=== PATIENT | male | born 1960 | race Caucasian/White ===

== ENCOUNTER 2021-03-24 16:10 | Emergency (ER) | payer OTHER ==
[~2021-03-24] VITALS: Ht 182.9 cm; Wt 68.5 kg
[2021-03-24] MEDS ORDERED: IOHEXOL-350 100 ML VIAL IV ONE (16:45)
[2021-03-24] MEDS ORDERED: IV NS 0.9% 250 ML IV ONE (16:46)
[2021-03-24 16:49] LABS: BASOPHILS % (AUTO) 0.4 % (0.0-2.0); EOSINOPHILS % (AUTO) 0.3 % (0.0-6.0); HEMATOCRIT 36 % (39-51); HEMOGLOBIN 11.9 g/dL (13.5-17.5); LYMPHOCYTES # (AUTO) 1.3 /CMM (0.8-4.8); LYMPHOCYTES % (AUTO) 11.5 % (20.0-44.0); MEAN CORPUSCULAR HGB CONC 33 g/dl (31.0-36.0); MEAN CORPUSCULAR VOLUME 90 fL (80-96); MONOCYTES # (AUTO) 1.1 /CMM (0.1-1.30); MONOCYTES % (AUTO) 9.2 % (2.0-12.0); NEUTROPHILS # (AUTO) 9.2 /CMM (1.8-8.9); NEUTROPHILS % (AUTO) 78.6 % (43.0-81.0); PLATELET COUNT (AUTO) 217 /CMM (150-450); RED BLOOD CELL COUNT(AUTO) 4.03 MIL/uL (4.5-6.0); WHITE BLOOD COUNT (AUTO) 11.6 K/uL (4.3-11.0)
--- NOTE | 2021-03-24 16:50 | NUR ---
JONATHON FROM HOME TO ER BED 5. AAOX4. IN MILD DISTRESS, SOB SATING @ 85% ON RA. BROUGHT IN FOR SOB X 1 WEEKS WORST TODAY. PT ALSO REPORTS THAT HIS LEGS HAVE SWOLLEN FOR THE PAST WEEK. PT IS NOTED JAUNDICE AND REPORT LIVER CA X 6 YRS, LAST CHEMO 4 MOTNHS AGO. PT ALSO PRESENT WITH A PICC LINE THE PATIENT REPORTS LAST BEING USED 4MONTHS AGO FOR CHEMO AND LAST PICC LINE CARE X 2 WEEKS AGO. WAS AT THE BEDSIDE FOR EVAL. ORDES RECEIVED, NOTED AND CARRIED OUT. IV LINE ESTABLISHED ON R AC 18G, BLOOD DRAWN AND GIVEN TO LAB. PT ON O2 VIA NC @ 3LPM SATTING @ 100% WITH DISTRESS ALLEVIATION. WILL CONTINUE TO MONITOR
--- NOTE | 2021-03-24 16:56 | NUR ---
US AT BEDSIDE
[2021-03-24 16:57] LABS: CALCIUM, SERUM 8.6 mg/dL (8.5-10.1); CREATININE 1.1 mg/dL (0.6-1.3); POTASSIUM 3.6 mmol/L (3.5-5.1)
[2021-03-24 17:09] LABS: ALBUMIN 1.7 g/dL (3.4-5.0); BILIRUBIN,DIRECT 11.1 mg/dL (0.0-0.2); BILIRUBIN,TOTAL 12.7 mg/dL (0.2-1.0); TOTAL PROTEIN, SERUM 6.4 g/dL (6.4-8.2)
[2021-03-24] MEDS ORDERED: FUROSEMIDE 40 MG/4 ML VIAL IV ONE (17:30)
[2021-03-24] MEDS ORDERED: FUROSEMIDE 40 MG/4 ML VIAL ONE (17:38)
--- NOTE | 2021-03-24 17:55 | NUR ---
CALLED [facility].
--- NOTE | 2021-03-24 18:10 | NUR ---
covid swab done and sent to lab
--- NOTE | 2021-03-24 18:18 | NUR ---
AUSTIN ZAMORA [phone] CAREGIVER?
--- NOTE | 2021-03-24 18:51 | NUR ---
GOING TO [facility] ED. # FOR REPORT [phone] ADMITTING MD: DR [facility] ETA 1 HOUR.
--- NOTE | 2021-03-24 18:59 | NUR ---
LAB CALLED PT COVID RESULT NEGATIVE (-).
[2021-03-24] MEDS ORDERED: ALPRAZOLAM 0.5 MG TABLET PO ONE (19:00)
--- NOTE | 2021-03-24 19:04 | NUR ---
ETA 2100 [facility] ambulance
[2021-03-24] MEDS ORDERED: ALPRAZOLAM 0.5 MG TABLET ONE (19:07)
--- NOTE | 2021-03-24 19:16 | NUR ---
BRANDIE, PT'S IS AWARE THAT THE PT IS GOING TO BE TRANSFERRED TO [facility]
[2021-03-24 20:29] VITALS: BP 126/82
--- NOTE | 2021-03-24 20:38 | NUR ---
Kobi lucia in ED - 03/24/21 at 2039 by AMIRAH Report given to isrrael Micalcine furnace loader nurse at [facility].
--- NOTE | 2021-03-24 20:39 | NUR ---
Report given to Hiwot engine turner nurse at [facility].
--- NOTE | 2021-03-24 20:39 | NUR ---
prn ambulance 114 at bedside for pt transprot to [facility]. reprot given. pt is in stable condition for transport. report given
--- NOTE | 2021-03-24 20:50 | NUR ---
PT LEFT ON GURNEY WITH 2 AMBULANCE STAFF ON STABLE CONDITION. NAD NOTED DURING TRANSPORT
== END 2021-03-24 20:54 | disposition short-term general hospital (02) ==
LOC: ER 16:14
DX: I11.0 Hypertensive heart disease with heart failure (principal); I50.9 Heart failure, unspecified; R94.31 Abnormal electrocardiogram [ECG] [EKG]; Z20.822 Contact with and (suspected) exposure to COVID-19; F41.9 Anxiety disorder, unspecified; C18.9 Malignant neoplasm of colon, unspecified; C78.7 Secondary malignant neoplasm of liver and intrahepatic bile duct; C78.02 Secondary malignant neoplasm of left lung; C78.01 Secondary malignant neoplasm of right lung; Z93.3 Colostomy status
CPT/HCPCS: 36415; 71045; 71275; 80048; 80076; 83880; 84484; 85025; 85730; 87426; 93005; 93970; 96374; 99291; C9803; J1940; J7050; Q9967